=== PATIENT | male | born 1975 | race Two or more races ===

== ENCOUNTER 2025-07-24 21:45 | Emergency (ER) | payer OTHER ==
[~2025-07-24] VITALS: Ht 180.3 cm; Wt 89.8 kg
[2025-07-25] MEDS ORDERED: KETOROLAC TROMETHAMINE 30 MG VIAL IM STA (00:24)
[2025-07-25] MEDS ORDERED: TRAMADOL HCL 50 MG TABLET PO STA (00:25)
[2025-07-25] MEDS ORDERED: KETOROLAC TROMETHAMINE 30 MG VIAL ONE (00:27)
== END 2025-07-25 01:46 | disposition home or self-care (01) ==
LOC: ER 21:45
DX: S93.492A Sprain of other ligament of left ankle, initial encounter (principal); W19.XXXA Unspecified fall, initial encounter; Y93.89 Activity, other specified; Y92.018 Other place in single-family (private) house as the place of occurrence of the external cause; Y99.9 Unspecified external cause status; M25.571 Pain in right ankle and joints of right foot